=== PATIENT | male | born 1950 | race Caucasian/White ===

== ENCOUNTER → 2017-02-28 | Outpatient (CLI) | payer OTHER | LOC: KOH-I 14:00 | DX: N18.3 Chronic kidney disease, stage 3 (moderate) (principal); N28.1 Cyst of kidney, acquired | CPT/HCPCS: 76775 ==

== ENCOUNTER → 2021-02-22 | Outpatient (CLI) | payer OTHER | LOC: KOH-I 11:30 | DX: N28.1 Cyst of kidney, acquired (principal); N28.9 Disorder of kidney and ureter, unspecified | CPT/HCPCS: 76775 ==

== ENCOUNTER → 2021-05-10 | Outpatient (CLI) | payer MEDICARE | LOC: ECHO 10:00 | DX: R60.9 Edema, unspecified (principal); I08.8 Other rheumatic multiple valve diseases | CPT/HCPCS: ECHO; 93306 ==

== ENCOUNTER → 2021-06-21 | Outpatient (CLI) | payer MEDICARE | LOC: KOH-I 08:49 | DX: N28.1 Cyst of kidney, acquired (principal); K57.90 Diverticulosis of intestine, part unspecified, without perforation or abscess without bleeding | CPT/HCPCS: 74176 ==

== ENCOUNTER → 2022-02-11 | Outpatient (CLI) | payer MEDICARE | LOC: RT 12:17 | DX: E87.2 Acidosis (principal) | CPT/HCPCS: 36600; 82803 ==

== ENCOUNTER → 2022-04-27 | Outpatient (CLI) | payer MEDICARE | LOC: LAB 10:30 → RT 10:30 | DX: E87.2 Acidosis (principal) | CPT/HCPCS: 36600; 82803 ==

== ENCOUNTER 2022-06-06 16:40 | Emergency (ER) | payer MEDICARE ==
[2022-06-06] MEDS ORDERED: BACTROBAN OINT22 GM EXT (18:39)
== END 2022-06-06 18:55 | disposition home or self-care (01) ==
LOC: ER1 16:40
DX: S00.01XA Abrasion of scalp, initial encounter (principal); I10 Essential (primary) hypertension; E11.9 Type 2 diabetes mellitus without complications; E78.5 Hyperlipidemia, unspecified; W10.9XXA Fall (on) (from) unspecified stairs and steps, initial encounter
CPT/HCPCS: 70450; 99283

== ENCOUNTER → 2022-07-31 | Outpatient (CLI) | payer MEDICARE ==
[~2022-07-31] MED LIST: BACTROBAN OINT22 GM EXT
== END ==
LOC: LAB 13:24
PROVIDERS: Internal Medicine Nephrology
DX: N18.32 Chronic kidney disease, stage 3b (principal)
CPT/HCPCS: 80053; 82570; 84156